=== PATIENT | female | born 1990 | race Caucasian/White ===

== ENCOUNTER 2016-07-16 17:40 | Emergency (ER) | payer OTHER ==
[2016-07-16 18:09] VITALS: RESP 16
--- NOTE | 2016-07-16 18:33 | ED ---
General Adult HPI - General Chief complaint: Needlestick/Exposure Stated complaint: Bur struck arm from dentist office-S Time Seen by Provider: 07/16/16 18:14 Source: patient, RN notes reviewed Mode of arrival: ambulatory Limitations: no limitations - History of Present Illness Initial comments: This is a 26-year-old female presents with an abrasion from a used dental tool. 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 This happened today. Patient states the patient's blood that she was exposed had a past medical history negative for any infectious disease. Patient states she has received her entire hepatitis B course and had titers showing response to the vaccine. Patient states she washed and cleaned the abrasion with peroxide and warm soapy water right after it happened. Patient denies any history of infectious disease.Patient denies any recent fever, chills, shortness breath, chest pain, abdominal pain, nausea/vomiting/diarrhea, back pain, numbness, tingling, hematuria, headache, or visual changes, or any other complaints. - Related Data Allergies Allergy/AdvReac Type Severity Reaction Status Date / Time No Known Allergies Allergy Verified 07/16/16 19:51 Review of Systems ROS Statement: Those systems with pertinent positive or pertinent negative responses have been documented in the HPI. ROS Other: All systems not noted in ROS Statement are negative. Past Medical History Past Medical History: No Reported History History of Any Multi-Drug Resistant Organisms: None Reported, MRSA Date of last positivie culture/infection: 2006 MDRO Source:: arm Past Surgical History: No Surgical Hx Reported Smoking Status: Never smoker Past Alcohol Use History: None Reported Past Drug Use History: None Reported General Exam - General Exam Comments Initial Comments: General: The patient is awake and alert, in no distress, and does not appear acutely ill. Eye: Pupils are equal, round and reactive to light, extra-ocular movements are intact. No nystagmus. There is normal conjunctiva bilaterally. No signs of icterus. Mouth and throat: There are moist mucous membranes and no oral lesions. Neck: The neck is supple, there is no tenderness or JVD. Cardiovascular: There is a regular rate and rhythm. No murmur, rub or gallop is appreciated. Respiratory: Lungs are clear to auscultation, respirations are non-labored, breath sounds are equal. No wheezes, stridor, rales, or rhonchi. Musculoskeletal: Normal ROM, no tenderness. Strength 5/5. Sensation intact. Radial Pulses equal bilaterally 2+. Neurological: A&O x 3. CN II-XII intact, There are no obvious motor or sensory deficits. Coordination appears grossly intact. Speech is normal. Skin: There is an approximately 1 cm thin abrasion to the left forearm. No drainage, erythema or swelling. Skin is warm and dry and no rashes or lesions are noted. Psychiatric: Cooperative, appropriate mood & affect, normal judgment. Limitations: no limitations Course Vital Signs 07/16/16 18:06 Temperature 98.1 F Pulse Rate 82 Respiratory 16 Rate Blood Pressure 119/68 O2 Sat by Pulse 97 Oximetry Medical Decision Making - Medical Decision Making This is a 21-year-old female with bodily fluid exposure at the dentist office that she works at. Physical exam there is an approximately 1 cm thin abrasion to the right forearm. Patient has had her entire course of hepatitis B vaccine and showed immunity through positive titers. Patient has no history of infectious disease. Patient states the patient whose blood she was exposed to also stated that he was negative for any infectious disease. Labs were drawn. Discussed that the results will come back within a couple of days. I reviewed possibility for post exposure prophylaxis. Discussed that patient should follow up with PCP in one to 2 days or return to the [facility] for any worsening symptoms or for any further concerns. Patient was receptive to this plan and patient will be discharged home. Disposition Clinical Impression: Exposure to blood or body fluid Disposition: HOME SELF-CARE Condition: Good Instructions: Postexposure Prophylaxis (ED) Additional Instructions: Please follow-up with family doctor in the next 2 days of symptoms have not improved. Please return to emergency room if the symptoms increase or worsen or for any other concerns. Referrals: Maxi Jurado Jr, [Primary Care Provider] - 1-2 days Time of Disposition: 20:39
[2016-07-16 20:39] LABS: Hepatitis B Surface Ag Index 0.05
[2016-07-16 20:45] LABS: Hepatitis B Core IgM Index 0.02
[2016-07-16 20:54] VITALS: BP 123/72; PULSE 78; TEMP 97.1
[2016-07-16 20:56] LABS: Hepatitis C Virus IgG Index 0.11
[2016-07-16 20:57] LABS: Hepatitis C Virus IgG Ab Negative (Negative)
[2016-07-18 13:04] LABS: HIV-1/HIV-2 Ab Screen NONREAC (NON REAC)
== END 2016-07-16 20:51 | disposition home or self-care (01) ==
LOC: EC 17:40
DX: Z04.2 Encounter for examination and observation following work accident (principal); Z77.21 Contact with and (suspected) exposure to potentially hazardous body fluids; Y92.59 Other trade areas as the place of occurrence of the external cause; S50.811A Abrasion of right forearm, initial encounter
CPT/HCPCS: 36415; 80074; 87389; 99283

== ENCOUNTER → 2019-02-15 | Outpatient (CLI) | payer BC ==
[2019-02-15 17:42] LABS: HCT 39.2 % (34.0-46.0); HGB 13.6 gm/dL (11.4-16.0); MCHC 34.6 g/dL (31.0-37.0); MCV 92.4 fL (80.0-100.0); Mean Platelet Volume 6.5; Platelet Count 275 k/uL (150-450); RBC 4.25 m/uL (3.80-5.40); RDW 12.5 % (11.5-15.5)
[2019-02-15 23:41] LABS: Thyroid Peroxidase Antibodies 37.4 U/mL (0.0-60.0)
[2019-02-15 23:47] LABS: African American GFR (CKD) 116.3 (60.0-200.0); Albumin 4.4 g/dL (3.80-4.90); Albumin/Globulin Ratio 1.91 (1.60-3.17); Anion Gap 8.8 mmol/L (4.00-12.00); BUN/Creat Ratio 18.75 Ratio (12.00-20.00); Calcium 9.1 mg/dL (8.7-10.3); Carbon Dioxide 25.2 mmol/L (21.6-31.8); Globulin 2.3 g/dL (1.6-3.3); Potassium 4.2 mmol/L (3.5-5.5); Total Bilirubin 0.3 mg/dL (0.2-1.2); Total Protein 6.7 g/dL (6.2-8.2)
[2019-02-16 01:13] LABS: ACTH 7.53 pg/mL (0.00-45.99)
== END | disposition home or self-care (01) ==
LOC: LABWHC1 17:06
PROVIDERS: ATTEND Internal Medicine Endocrinology, Diabetes & Metabolism
DX: R53.83 Other fatigue (principal)
CPT/HCPCS: 36415; 80053; 82024; 82533; 82607; 84146; 84439; 84443; 84481; 85027; 86376

== ENCOUNTER 2024-06-27 18:38 | Observation (INO) | payer BC, OTHER ==
--- NOTE | 2024-06-27 19:01 | ED ---
General Adult HPI - General Chief complaint: Syncope Stated complaint: 7 wks preg, abd pain, syncope Time Seen by Provider: 06/27/24 19:00 Source: patient, family, RN notes reviewed Mode of arrival: ambulatory Limitations: no limitations - History of Present Illness Initial comments: This is a 34-year-old female no significant medical history, [id number] presenting to the emergency department with a complaint of a syncopal event and abdominal pain. Patient states that she is approximately 7 weeks and prior to arrival she began to experience severe lower abdominal pain described as a squeezing sensation while she was standing at the kitchen table after dinner. Patient states that pain began to intensify and she experienced symptoms of dizziness, lightheadedness and believe that she was going to pass out when she slowly sat onto the floor. Currently, patient states that she is having 10 out of 10 lower abdominal pain. She denies vaginal bleeding, vaginal discharge, dysuria, hematuria, flank pain, nausea, vomiting, fevers, chills. Denies previous surgical abdominal history. Patient states that she has an appointment scheduled for her first OB visit this week with Dr. Russell. - Related Data Home Medications Medication Instructions Recorded Confirmed Sertraline [Zoloft] 1 tab PO DAILY 06/28/24 06/28/24 Allergies Allergy/AdvReac Type Severity Reaction Status Date / Time No Known Allergies Allergy Verified 06/27/24 18:56 Review of Systems ROS Statement: Those systems with pertinent positive or pertinent negative responses have been documented in the HPI. ROS Other: All systems not noted in ROS Statement are negative. Past Medical History Past Medical History: No Reported History History of Any Multi-Drug Resistant Organisms: MRSA Date of last positivie culture/infection: 2006 MDRO Source:: arm Past Surgical History: No Surgical Hx Reported Past Psychological History: No Psychological Hx Reported Smoking Status: Never smoker Past Alcohol Use History: None Reported Past Drug Use History: None Reported General Exam Limitations: no limitations General appearance: alert, other (acute distress due to pain, pallor) ENT exam: Present: normal exam, mucous membranes moist Respiratory exam: Present: normal lung sounds bilaterally. Absent: respiratory distress, wheezes, rales, rhonchi, stridor Cardiovascular Exam: Present: regular rate, normal rhythm, tachycardia, normal heart sounds. Absent: systolic murmur, diastolic murmur, rubs, gallop, clicks GI/Abdominal exam: Present: tenderness, guarding, rigid, normal bowel sounds, other (peritonal signs on exam). Absent: soft, distended, rebound, mass, bruit Extremities exam: Present: normal inspection, full ROM, normal capillary refill. Absent: tenderness, pedal edema, joint swelling, calf tenderness Back exam: Present: normal inspection Course Vital Signs 06/27/24 06/27/24 06/27/24 18:57 20:09 20:13 Temperature 97.7 F Pulse Rate 85 81 110 H Respiratory 16 20 20 Rate Blood Pressure 71/49 96/62 74/41 O2 Sat by Pulse 100 98 97 Oximetry 06/27/24 06/27/24 06/27/24 20:17 20:28 20:36 Temperature Pulse Rate 115 H 87 80 Respiratory 14 18 16 Rate Blood Pressure 54/41 115/77 110/74 O2 Sat by Pulse Oximetry 06/27/24 06/27/24 06/27/24 20:45 20:51 21:00 Temperature Pulse Rate 88 85 86 Respiratory 16 18 13 Rate Blood Pressure 97/58 115/72 122/89 O2 Sat by Pulse 100 100 Oximetry 06/27/24 06/27/24 06/27/24 21:10 21:15 21:20 Temperature Pulse Rate 96 86 82 Respiratory 15 12 21 Rate Blood Pressure 92/77 109/64 65/40 O2 Sat by Pulse 99 100 100 Oximetry 06/27/24 06/27/24 06/27/24 21:24 21:26 21:30 Temperature Pulse Rate 86 92 103 H Respiratory 12 20 20 Rate Blood Pressure 72/37 101/49 121/63 O2 Sat by Pulse 98 100 99 Oximetry 06/27/24 06/27/24 06/27/24 21:32 21:42 21:44 Temperature 98.4 F 98.4 F Pulse Rate 103 H 87 87 Respiratory 15 16 16 Rate Blood Pressure 113/66 108/67 108/67 O2 Sat by Pulse 99 100 100 Oximetry Medical Decision Making - Medical Decision Making Was pt. sent in by a medical professional or institution (, PA, DIGITAL ASSOCIATE MEDIA DIRECTOR, urgent care, hospital, or snf...) When possible be specific @ -No Did you speak to anyone other than the patient for history (EMS, parent, family, police, friend...)? What history was obtained from this source @ -Spoke to patient's and mother at bedside states the patient is scheduled for her first OB visit this week with Dr. Russell Did you review nursing and triage notes (agree or disagree)? Why? @ -I reviewed and agree with nursing and triage notes Were old charts reviewed (outside hosp., previous admission, EMS record, old EKG, old radiological studies, urgent care reports/EKG's, snf records)? Report findings @ -No old charts were reviewed Differential Diagnosis (chest pain, altered mental status, abdominal pain women, abdominal pain men, vaginal bleeding, weakness, fever, dyspnea, syncope, headache, dizziness, GI bleed, back pain, seizure, CVA, palpatations, mental health, musculoskeletal)? @ -Differential Syncope: Valvular disease, hypertrophic cardiomyopathy, pulmonary embolism, tamponade, tachycardia, bradycardia, ME, hypovolemia, hemorrhage, dissection, anemia, intracranial hemorrhage, seizure, hypoglycemia, carbon monoxide poisoning, this is not meant to be an all-inclusive list. EKG interpreted by me (3pts min.). @ -Completed at 1903 sinus rhythm with a ventricular to 77, MO interval 187, QRS 83, QTc 416. X-rays interpreted by me (1pt min.). @ -None done CT interpreted by me (1pt min.). @ -None done U/S interpreted by me (1pt. min.). @ -Transvaginal and transabdominal ultrasound completed with a impression of no evidence of intrauterine gestational sac with noted presence of free fluid and heterogeneous material reflecting blood products seen within the pelvic cavity and possible blood products seen within the pelvic cavity. What testing was considered but not performed or refused? (CT, X-rays, U/S, labs)? Why? @ -None What meds were considered but not given or refused? Why? @ -None Did you discuss the management of the patient with other professionals (professionals i.e. , PA, DIGITAL ASSOCIATE MEDIA DIRECTOR, lab, RT, psych nurse, social media executive, lumber kiln operator, teacher, sustainability officer, correctional case records supervisor)? Give summary @ -i spoke with my attending, Dr. Conway, who assisted in the care of this patient and contacted on-call OB specialist for further continuation of care. Was smoking cessation discussed for >3mins.? @ -No Was critical care preformed (if so, how long)? @ -No Were there social determinants of health that impacted care today? How? (Homelessness, low income, unemployed, alcoholism, drug addiction, transportation, low edu. Level, literacy, decrease access to med. care, fpc, rehab)? @ -No Was there de-escalation of care discussed even if they declined (Discuss DNR or withdrawal of care, Hospice)? DNR status @ -No What co-morbidities impacted this encounter? (DM, HTN, Smoking, COPD, CAD, Cancer, CVA, ARF, Chemo, Hep., AIDS, mental health diagnosis, sleep apnea, morbid obesity)? @ -None Was patient admitted / discharged? Hospital course, mention meds given and route, prescriptions, significant lab abnormalities, going to OR and other pertinent info. @ -Admitted. 34-year-old female presenting with abdominal pain and syncope. Patient is noted to be hypotensive on arrival. On my evaluation she is in acute distress clutching her lower abdomen. Abdominal examination remarkable for rebound tenderness and positive peritoneal signs. Reevaluation of patient's blood pressure is improved 120s over 80s. She is promptly provided with 1500L fluid bolus in addition to pain medications and will undergo syncopal workup in addition to transvaginal OB ultrasound due to history of 7 weeks of gestation. While patient was undergoing ultrasound as reported by nursing staff that patient had a syncopal episode. At this time additional liter fluid bolus is ordered and further pain medication and antiemetics are ordered as well. My attending, Dr. Conway, personally evaluated the patient as well and was in the room with sanitation technician while ultrasound was being completed. There is concern for Blood products seen within the pelvic cavity most likely originating from ruptured ectopic of the right fallopian tube. At this time my attending contacted on-call OB specialist, Dr. Cali, was agreed to come to personally evaluate the patient with impending OR evaluation for emergent laparotomy. Patient is fluctuating with periods of hypotension while heart rate remains stable. Labs are remarkable for leukocytosis 17, elevated neutrophils of 10 and lymphocytes of 5.8. Patient's APTT 16.[place] [address].8. Patient will be admitted for emergent laparotomy under the care of Dr. Cali. Undiagnosed new problem with uncertain prognosis? @ -No Drug Therapy requiring intensive monitoring for toxicity (Heparin, Nitro, Insulin, Cardizem)? @ -No Were any procedures done? @ -No Diagnosis/symptom? @ -peritoneal abdominal pain, ruptured ectopic , syncope Acute, or Chronic, or Acute on Chronic? @ -Acute Uncomplicated (without systemic symptoms) or Complicated (systemic symptoms)? @ -Complicated Side effects of treatment? @ -No Exacerbation, Progression, or Severe Exacerbation? @ -No Poses a threat to life or bodily function? How? (Chest pain, USA, ME, pneumonia, PE, COPD, DKA, ARF, appy, cholecystitis, CVA, Diverticulitis, Homicidal, Suicidal, threat to staff... and all critical care pts) @ -yes - Lab Data Result diagrams: 06/28/24 11:59 06/28/24 06:10 Lab Results 06/27/24 06/27/24 06/27/24 Range/Units 19:14 19:14 19:16 WBC 17.0 H (3.8-10.6) k/uL RBC 4.06 (3.80-5.40) m/uL Hgb 12.7 (11.4-16.0) gm/dL Hct 36.9 (34.0-46.0) % MCV 90.8 (80.0-100.0) fL MCH 31.3 (25.0-35.0) pg MCHC 34.5 (31.0-37.0) g/dL RDW 12.4 (11.5-15.5) % Plt Count 327 (150-450) k/uL MPV 7.3 Neutrophils % 59 % Lymphocytes % 34 % Monocytes % 4 % Eosinophils % 1 % Basophils % 1 % Neutrophils # 10.0 H (1.3-7.7) k/uL Lymphocytes # 5.8 H (1.0-4.8) k/uL Monocytes # 0.7 (0-1.0) k/uL Eosinophils # 0.1 (0-0.7) k/uL Basophils # 0.1 (0-0.2) k/uL PT (10.0-12.5) sec INR (<1.2) APTT (22.0-30.0) sec Sodium 134 L (137-145) mmol/L Potassium 3.5 (3.5-5.1) mmol/L Chloride 101 (98-107) mmol/L Carbon Dioxide 17 L (22-30) mmol/L Anion Gap 16 mmol/L BUN 16 (7-17) mg/dL Creatinine 0.82 (0.52-1.04) mg/dL Est GFR (CKD-EPI)AfAm >90 (>60 ml/min/1.73 sqM) Est GFR (CKD-EPI)NonAf >90 (>60 ml/min/1.73 sqM) Glucose 176 H (74-99) mg/dL POC Glucose (mg/dL) (70-110) mg/dL POC Glu Shop Hand ID Calcium 9.7 (8.4-10.2) mg/dL Magnesium 1.9 (1.6-2.3) mg/dL Total Bilirubin 0.2 (0.2-1.3) mg/dL AST 18 (14-36) U/L ALT 13 (4-34) U/L Alkaline Phosphatase 56 (38-126) U/L Total Protein 6.7 (6.3-8.2) g/dL Albumin 4.1 (3.5-5.0) g/dL HCG, Quant 68602.8 mIU/mL Blood Type A Positive Blood Type Confirm Blood Type Recheck No Previous Record Bld Type Recheck Status CABO Indicated Antibody Screen NEGATIVE Crossmatch See Detail Spec Expiration Date 06/30/2024 - 231506/27/24 06/27/24 06/27/24 Range/Units 19:17 20:16 20:29 WBC (3.8-10.6) k/uL RBC (3.80-5.40) m/uL Hgb (11.4-16.0) gm/dL Hct (34.0-46.0) % MCV (80.0-100.0) fL MCH (25.0-35.0) pg MCHC (31.0-37.0) g/dL RDW (11.5-15.5) % Plt Count (150-450) k/uL MPV Neutrophils % % Lymphocytes % % Monocytes % % Eosinophils % % Basophils % % Neutrophils # (1.3-7.7) k/uL Lymphocytes # (1.0-4.8) k/uL Monocytes # (0-1.0) k/uL Eosinophils # (0-0.7) k/uL Basophils # (0-0.2) k/uL PT 10.2 (10.0-12.5) sec INR 0.9 (<1.2) APTT 16.6 L (22.0-30.0) sec Sodium (137-145) mmol/L Potassium (3.5-5.1) mmol/L Chloride (98-107) mmol/L Carbon Dioxide (22-30) mmol/L Anion Gap mmol/L BUN (7-17) mg/dL Creatinine (0.52-1.04) mg/dL Est GFR (CKD-EPI)AfAm (>60 ml/min/1.73 sqM) Est GFR (CKD-EPI)NonAf (>60 ml/min/1.73 sqM) Glucose (74-99) mg/dL POC Glucose (mg/dL) 182 H (70-110) mg/dL POC Glu Shop Hand ID NAINA SCIANDRA Calcium (8.4-10.2) mg/dL Magnesium (1.6-2.3) mg/dL Total Bilirubin (0.2-1.3) mg/dL AST (14-36) U/L ALT (4-34) U/L Alkaline Phosphatase (38-126) U/L Total Protein (6.3-8.2) g/dL Albumin (3.5-5.0) g/dL HCG, Quant mIU/mL Blood Type Blood Type Confirm A Positive Blood Type Recheck Bld Type Recheck Status Antibody Screen Crossmatch Spec Expiration Date Disposition Clinical Impression: Syncope, Ruptured ectopic Disposition: ADMITTED IP TO THIS [facility] Condition: Serious Decision to Admit Reason: Admit from [facility] Decision Date: 06/27/24 Decision Time: 21:00
[2024-06-27] MEDS: SODIUM CHLORIDE 0.9% 1,500 ML IV STA (19:19)
[2024-06-27] MEDS: MORPHINE SULFATE 4 MG/ML SYRINGE IVP STA ×2 (19:20→20:22)
[2024-06-27 19:57] LABS: Basophils # (A) 0.1 k/uL (0-0.2); Basophils % (A) 1 %; Eosinophils # (A) 0.1 k/uL (0-0.7); Eosinophils % (A) 1 %; HCT 36.9 % (34.0-46.0); HGB 12.7 gm/dL (11.4-16.0); Lymphocytes # (A) 5.8 k/uL (1.0-4.8); Lymphocytes % (A) 34 %; MCH 31.3 pg (25.0-35.0); MCHC 34.5 g/dL (31.0-37.0); MCV 90.8 fL (80.0-100.0); Mean Platelet Volume 7.3; Monocytes # (A) 0.7 k/uL (0-1.0); Monocytes % (A) 4 %; Neutrophils % (A) 59 %; Platelet Count 327 k/uL (150-450); RBC 4.06 m/uL (3.80-5.40); RDW 12.4 % (11.5-15.5)
[2024-06-27 20:11] LABS: ALT 13 U/L (4-34); AST 18 U/L (14-36); African American GFR (CKD) >90 (>60 ml/min/1.73 sqM); Albumin 4.1 g/dL (3.5-5.0); Alkaline Phosphatase 56 U/L (38-126); Anion Gap 16 mmol/L; Blood Urea Nitrogen 16 mg/dL (7-17); Calcium 9.7 mg/dL (8.4-10.2); Carbon Dioxide 17 mmol/L (22-30); Chloride 101 mmol/L (98-107); Glucose 176 mg/dL (74-99); Magnesium 1.9 mg/dL (1.6-2.3); Non-African American GFR(CKD) >90 (>60 ml/min/1.73 sqM); Potassium 3.5 mmol/L (3.5-5.1); Sodium 134 mmol/L (137-145); Total Bilirubin 0.2 mg/dL (0.2-1.3); Total Protein 6.7 g/dL (6.3-8.2)
[2024-06-27 20:18] LABS: Glucose,Whole Blood 182 mg/dL (70-110)
[2024-06-27 20:20] LABS: INR 0.9 (<1.2); Prothrombin Time 10.2 sec (10.0-12.5)
[2024-06-27] MEDS: ONDANSETRON 4 MG/2 ML VIAL IVP STA (20:21)
[2024-06-27] MEDS: SODIUM CHLORIDE 0.9% 1,000 ML IV STA (20:21)
[2024-06-27 20:41] LABS: Partial Thromboplastin Time 16.6 sec (22.0-30.0)
--- NOTE | 2024-06-27 20:43 | US ---
EXAMINATION TYPE: Transabdominal DATE OF EXAM: 06/27/2024 8:27 PM COMPARISON: NONE CLINICAL INDICATION: Female, 34 years old with history of pelvic pain, 7 weeks gestation; LOW BLOOD P RESSURE. NO prior ultrasound. PATIENT PASSED OUT DURING TRVAG IMAGING. TECHNIQUE: Transvaginal (TV) and Transabdominal (TA) with grayscale and color Doppler imaging includi ng first trimester . FINDINGS: EXAM MEASUREMENTS: GESTATIONAL AGE / DATING Physician Established: Not yet established Dates by LMP: (7 weeks/5 days) EDC: 02/08/2025 Dates by First Scan: No previous this is first scan Dates by Current Scan for: Unable to date by today's study MATERNAL ANATOMY Uterus: 8.6 x 4.6 x 3.9 cm Right Ovary: seen, not measured due to patient status Left Ovary: Anechoic cyst in the left ovary measuring 5.0 x 4.9 x 3.7 cm. Post CDS / Adnexa: possible blood products seen within pelvic cavity Presence of free fluid: Heterogeneous material possibly reflecting blood products seen within pelvic cavity. GESTATION / SURVEY IUP: No GS, YS or CRL visualized within endometrium Date of LMP: 05/04/2024, [id number] Beta HcG (if available): Not available at this time Thickened heterogenous endometrium - 1.8 cm. No GS, YS or CRL visualized within endometrium. Possibl e blood products seen within pelvic cavity. IMPRESSION: 1. No evidence of intrauterine gestational sac, correlate with B-hCG. If positive, this could represe nt early , ectopic or spontaneous . Follow up pelvic ultrasound in 5-7 day s and serial beta hCG studies are recommended. [facility], , 06/27/2024 8:40 PM
[2024-06-27] MEDS: SODIUM CHLORIDE 0.9% 1,000 ML IV ONE ×3 (20:47→21:49)
[2024-06-27 20:53] LABS: HCG,Quantitative Serum 17980.8 mIU/mL
[2024-06-27] MEDS ORDERED: NALOXONE 0.4 MG/ML 1 ML VIAL IV PRN (20:55)
[2024-06-27] MEDS ORDERED: HYDROmorphone 1 MG/ML 1 ML SYRINGE IVP PRN (20:55)
[2024-06-27] MEDS ORDERED: MORPHINE SULFATE 4 MG/ML SYRINGE IV PRN (20:55)
[2024-06-27] MEDS ORDERED: HYDROcodone/APAP 5-325MG 1 EACH TAB PO PRN (20:55)
[2024-06-27] MEDS ORDERED: ONDANSETRON 4 MG/2 ML VIAL IVP PRN ×2 (20:55→23:34)
--- NOTE | 2024-06-27 21:14 | P.HPOB ---
History of Present Illness H&P Date: 06/27/24 Chief Complaint: Ectopic , hemoperitoneum This is a 34-year-old -0-1-0 at approximately 7 weeks gestation that presents with complaints of abdominal pain, increasing in nature, feeling like she was going to pass out after dinner. Patient states she had a positive test on 1219. Patient underwent ultrasound evaluation while in the emergency department blood was noted in the posterior cul-de-sac. Right ovary not visualized. Left ovary with enlarged cystic structure. Blood pressure on arrival 90s over 50s. Patient is coherent able to answer q uestions Patient did have loss of consciousness during ultrasound. [employer] MANAGER history #1 spontaneous AB #2 current States she was trying for menstrual cycles are regular in nature. Review of Systems Constitutional: Denies chills, Denies fever Ears, nose, mouth and throat: Denies headache Cardiovascular: Denies leg edema Respiratory: Denies dyspnea Genitourinary: Reports Past Medical History Past Medical History: No Reported History History of Any Multi-Drug Resistant Organisms: MRSA Date of last positivie culture/infection: 2006 MDRO Source:: arm Past Surgical History: No Surgical Hx Reported Past Psychological History: No Psychological Hx Reported Smoking Status: Never smoker Past Alcohol Use History: None Reported Past Drug Use History: None Reported Medications and Allergies Allergies Allergy/AdvReac Type Severity Reaction Status Date / Time No Known Allergies Allergy Verified 06/27/24 18:56 Exam Osteopathic Statement: *. No significant issues noted on an osteopathic structural exam other than those noted in the History and Physical/Consult. Vital Signs Temp Pulse Resp BP Pulse Ox 06/27/24 20:51 85 18 115/72 100 06/27/24 20:45 88 11 L 97/58 06/27/24 20:36 80 9 L 110/74 06/27/24 20:28 87 18 115/77 06/27/24 20:17 115 H 14 54/41 06/27/24 20:13 110 H 20 74/41 97 06/27/24 20:09 81 20 96/62 98 06/27/24 18:57 97.7 F 85 16 71/49 100 Intake and Output 06/27/24 06/27/24 06/27/24 06:59 14:59 22:59 Other: Weight 77.111 kg 30 exam is performed this date General Is well-nourished well-developed female, oriented to time and place. Patient is in reverse Trendelenburg secondary to low blood pressure. Abdominal exam performed by ED physician Dr. Ramirez, peritoneal signs are appreciated. Results Result Diagrams: 06/27/24 19:14 06/27/24 19:14 Abnormal Lab Results - Last 24 Hours (Table) 06/27/24 06/27/24 06/27/24 Range/Units 19:14 19:14 19:17 WBC 17.0 H (3.8-10.6) k/uL Neutrophils # 10.0 H (1.3-7.7) k/uL Lymphocytes # 5.8 H (1.0-4.8) k/uL APTT 16.6 L (22.0-30.0) sec Sodium 134 L (137-145) mmol/L Carbon Dioxide 17 L (22-30) mmol/L Glucose 176 H (74-99) mg/dL POC Glucose (mg/dL) (70-110) mg/dL 06/27/24 Range/Units 20:16 WBC (3.8-10.6) k/uL Neutrophils # (1.3-7.7) k/uL Lymphocytes # (1.0-4.8) k/uL APTT (22.0-30.0) sec Sodium (137-145) mmol/L Carbon Dioxide (22-30) mmol/L Glucose (74-99) mg/dL POC Glucose (mg/dL) 182 H (70-110) mg/dL Assessment and Plan (1) Ectopic Current Visit: Yes Status: Acute Code(s): O00.90 - UNSPECIFIED ECTOPIC WITHOUT INTRAUTERINE SNOMED Code(s): 60921143 (2) Hemoperitoneum Current Visit: Yes Status: Acute Code(s): K66.1 - HEMOPERITONEUM SNOMED Code(s): 255354506 Plan: 34-year-old at approximate 7 weeks gestation with presumed ectopic , hemoperitoneum. Patient is counseled on need for operative laparoscopy with evacuation of hemoperitoneum and possible salpingectomy. Patient is counseled on possibility of needing to proceed with exploratory laparotomy depending on findings of laparoscopy. Surgery is reviewed and risks are discussed including but not limited to infection, bleeding, damage to bladder, bowel, ureteric injury. Patient's family is in room and questions are answered. Anesthesia is notified and the OR team is notified.
[2024-06-27] MEDS: fentaNYL (PF) 50 MCG/ML 2 ML AMP IVP PRN (21:39)
[2024-06-27] MEDS ORDERED: CALCIUM CHLORIDE 100 MG/ML 10 ML SYRINGE ONE (21:47)
[2024-06-27] MEDS ORDERED: PHENYLEPHRINE 10 MG/ML VIAL ONE (21:47)
[2024-06-27] MEDS ORDERED: NEOSTIGMINE 1 MG/ML 10 ML VIAL ONE (21:47)
[2024-06-27] MEDS ORDERED: ROCURONIUM 10 MG/ML (5 ML VIAL) IV ONE (21:47)
[2024-06-27] MEDS ORDERED: GLYCOPYRROLATE 0.2 MG/ML 2 ML VIAL ONE (21:47)
[2024-06-27] MEDS ORDERED: fentaNYL (PF) 50 MCG/ML 2 ML AMP ONE (21:47)
[2024-06-27] MEDS ORDERED: ALBUMIN HUMAN 5% (12.5gm) 250 ML BOTTLE IVPB ONE (21:47)
[2024-06-27] MEDS ORDERED: ETOMIDATE 2 MG/ML 10 ML VIAL ONE (21:47)
[2024-06-27] MEDS ORDERED: LIDOCAINE 1% INJ 10MG/ML (20 ML MDV) ONE (21:47)
[2024-06-27] MEDS ORDERED: DEXAMETHASONE SOD PHOSPHATE 4 MG/ML 1 ML VIAL ONE (21:47)
[2024-06-27] MEDS ORDERED: SUCCINYLCHOLINE CHLORIDE 200 MG/10 ML VIAL IV ONE (21:47)
[2024-06-27] MEDS: ceFAZolin 1,000 MG VIAL IVPB ONE (21:49)
[2024-06-27] MEDS: BUPIVACAINE (PF) 0.25% 30 ML VIAL SQ ONE (22:02)
[2024-06-27] MEDS: LACTATED RINGERS 1,000 ML IV ONE (23:04)
[2024-06-27] MEDS: FAMOTIDINE 20 MG/2 ML VIAL IV PRN (23:21)
[2024-06-27] MEDS: HYDROmorphone 0.5 MG/0.5 ML SYRINGE IVP PRN (23:21)
--- NOTE | 2024-06-27 23:34 | P.OP ---
Date of Procedure: 06/27/24 Preoperative Diagnosis: Ectopic Postoperative Diagnosis: Same plus hemoperitoneum Procedure(s) Performed: Operative laparoscopy, right salpingectomy, evacuation of hemoperitoneum Anesthesia: CLEOA Surgeon: Lisa Cali Estimated Blood Loss (ml): 2,230 (Evacuation of hemoperitoneum) IV fluids (ml): 300 (500 cc of albumin) Urine output (ml): 100 Pathology: other (Right fallopian tube) Condition: stable Disposition: PACU Indications for Procedure: Ectopic , hemoperitoneum appreciated on ultrasound Operative Findings: Hemoperitoneum, right fallopian tube distended with ectopic normal left fallopian tube left ovary enlarged Description of Procedure: Patient was taken back to the operating suite where general anesthesia was obtained without difficulty by the anesthesia department. She was prepped and draped in the normal sterile fashion in the dorsal lithotomy position. A red rubber catheter was placed to drain the bladder during the procedure. A speculum was placed the anterior lip of the cervix was visualized and grasped with a single-tooth tenaculum. An acorn uterine manipulator was advanced into the cervix as a means to manipulate the uterus throughout the procedure. Attention was then turned to the patient's abdomen where in the umbilical fold a small skin incision is made. Through this incision the Veress needle is placed. Once the Veress needle was deemed to be in the appropriate position with a drop of CO2 pressure CO2 insufflation was allowed to occur. A 5 mm trocar and sleeve with the laparoscope and placed was placed through the skin incision and toward the pneumoperitoneum. The above-noted findings were visualized. An additional port sites is placed 10 cm lateral and 3 cm inferior to the midline port on the right side. The suction tour conductor was placed in the abdomen and a copious amount of blood was removed from the abdomen. Once the uterus was visualized the right fallopian tube was noted to be distended and purple in color. The LigaSure was opened and the mesosalpinx was coagulated and transected to the cornual region. Additional port site was placed and the left lower abdomen under direct visualization. This is a 10 mm port. An Endo Catch bag was placed through the 10 mm port and the fallopian tube was placed into the Endo Catch bag. Continued suction irrigation until majority of the blood was removed from the patient's pelvis. Blood was noted to the liver and this was suction irrigated as well. No active close bleeding was appreciated in the pelvis therefore all instruments were removed from the patient's abdomen. Attention was then turned to the right upper catheter which had fallen out during the surgery, Sears catheter was placed and blood-tinged urine was appreciated. At this point decision was to proceed with diagnostic cystoscopy. Sears was removed and cystoscope was performed. Cystoscope was placed through the urethra and toward the bladder bladder bubble was appreciated intact bladder mucosa was noted, both ureteral orifices were noted to be spilling clear yellow urine. A catheter was replaced after cystoscope was removed. Attention was turned to the abdomen where the skin incisions were closed with 4- 0 Vicryl in a subcuticular fashion. Steri-Strips and sterile dressings were applied. All counts noted be correct x 2 at the end of the procedure. Tolerated procedure well and was taken the recovery room awake in stable condition.
[2024-06-27] MEDS: IPRATROPIUM-ALBUTEROL 3 ML NEB INHALATION STA (23:45)
[2024-06-28] MEDS: ACETAMINOPHEN IV (For NPO) 1,000 MG in EMPTY BAG 1 BAG IVPB ONE (00:57)
[2024-06-28] MEDS: IBUPROFEN 800 MG TAB PO SCH (01:43)
[2024-06-28] MEDS: ACETAMINOPHEN TAB 500 MG TAB PO SCH (01:43)
[2024-06-28] MEDS: LACTATED RINGERS 1,000 ML IV SCH (01:44)
[2024-06-28] MEDS: HYDROmorphone 0.5 MG/0.5 ML SYRINGE IVP PRN (02:05)
[2024-06-28] MEDS: IBUPROFEN IV 800 MG in SODIUM CHLORIDE 0.9% 250 ML IV ONE (05:07)
[2024-06-28 06:47] LABS: Basophils % (A) 0 %; Eosinophils % (A) 0 %; HCT 27.5 % (34.0-46.0); Lymphocytes % (A) 7 %; MCH 31.2 pg (25.0-35.0); MCV 89.2 fL (80.0-100.0); Mean Platelet Volume 7.7; Monocytes # (A) 0.3 k/uL (0-1.0); Monocytes % (A) 2 %; Neutrophils # (A) 13.2 k/uL (1.3-7.7); Neutrophils % (A) 91 %; Platelet Count 173 k/uL (150-450); RBC 3.08 m/uL (3.80-5.40); RDW 13.5 % (11.5-15.5); WBC 14.5 k/uL (3.8-10.6)
[2024-06-28 06:50] LABS: HGB 9.6 gm/dL (11.4-16.0)
[2024-06-28 06:59] LABS: Prothrombin Time 10.9 sec (10.0-12.5)
[2024-06-28 07:00] LABS: ALT 12 U/L (4-34); AST 20 U/L (14-36); African American GFR (CKD) >90 (>60 ml/min/1.73 sqM); Albumin 3.1 g/dL (3.5-5.0); Alkaline Phosphatase 29 U/L (38-126); Anion Gap 9 mmol/L; Blood Urea Nitrogen 10 mg/dL (7-17); Calcium 8.2 mg/dL (8.4-10.2); Carbon Dioxide 18 mmol/L (22-30); Chloride 106 mmol/L (98-107); Glucose 146 mg/dL (74-99); Non-African American GFR(CKD) >90 (>60 ml/min/1.73 sqM); Potassium 4.5 mmol/L (3.5-5.1); Sodium 133 mmol/L (137-145); Total Bilirubin 0.7 mg/dL (0.2-1.3); Total Protein 5.1 g/dL (6.3-8.2)
[2024-06-28] MEDS ORDERED: ONDANSETRON 4 MG/2 ML VIAL IVP PRN (07:00)
[2024-06-28] MEDS: SENNOSIDES-DOCUSATE SODIUM 1 EACH TAB PO SCH (07:45)
--- NOTE | 2024-06-28 08:52 | P.PN ---
Progress Note - Text Progress Note Date: 06/28/24 34-year-old G2, P0 status post operative laparoscopy for ectopic , hemoperitoneum. Patient is doing overall well this morning. Hemoglobin on admission 12 down to 9.6 this morning status post 3 units of packed red blood cells in the operating room. Patient is diuresing well and Sears is draining clear yellow urine. Pain is moderately well-controlled. She denies shortness of breath, nausea, vomiting. No vaginal bleeding. Vital signs stable this morning General No acute distress Abdomen incisions intact clean and dry Extremities PAS in place Assessment Postop day 0, operative laparoscopy, right salpingectomy, evacuation of hemoperitoneum Acute blood loss anemia secondary to ectopic Plan Increase ambulation, once able to ambulate to the bathroom will plan to continuation of Sears catheter. Transition to oral pain medication Advance diet as tolerated Repeat CBC around 1230.
[2024-06-28 12:10] LABS: HGB 8.7 gm/dL (11.4-16.0); MCHC 36.2 g/dL (31.0-37.0); MCV 88.5 fL (80.0-100.0); Mean Platelet Volume 8.1; Platelet Count 165 k/uL (150-450); RBC 2.72 m/uL (3.80-5.40); RDW 13.6 % (11.5-15.5); WBC 15.3 k/uL (3.8-10.6)
[2024-06-28] MEDS: SIMETHICONE 80 MG CHEWABLE PO PRN (15:49)
[2024-06-29 04:13] VITALS: TEMP 98.7
[2024-06-29] MEDS: diphenhydrAMINE 50 MG/ML 1 ML VIAL IVP STA (05:45)
[2024-06-29 07:29] LABS: HCT 23.8 % (34.0-46.0); HGB 8.1 gm/dL (11.4-16.0); MCH 30.9 pg (25.0-35.0); MCV 90.9 fL (80.0-100.0); Mean Platelet Volume 7.4; Platelet Count 138 k/uL (150-450); RBC 2.62 m/uL (3.80-5.40); RDW 13.4 % (11.5-15.5); WBC 9.5 k/uL (3.8-10.6)
[2024-06-29 08:35] VITALS: BP 112/54; PULSE 85; RESP 16
--- NOTE | 2024-06-29 08:46 | P.DS ---
Providers Date of admission: 06/27/24 20:56 Expected date of discharge: 06/29/24 Attending physician: Lisa Cali Primary care physician: Darryn Jeong - Discharge Diagnosis(es) (1) Ectopic Current Visit: Yes Status: Acute (2) Hemoperitoneum Current Visit: Yes Status: Acute Hospital Course: 34-year-old G2, P0 presented to the emergency department with complaints of passing out at home and increased abdominal pain. Ultrasound was performed revealing hemoperitoneum. Positive urine test on 06/10. For full details in this patient please see the dictated history and physical. Patient was taken back to the operating suite where hemoperitoneum was appreciated and approximately 2200 cc of blood was suctioned out of her abdomen. Right fallopian tube was noted to be swollen with ectopic . Right fallopian tube was removed without difficulty. For full details on the surgery please see the dictated operative report. Patient did receive 3 units of packed red blood cells in the operating room. Patient is noted acute blood loss anemia secondary to ectopic going from 12-8.1. Patient is feeling okay this morning. She is ambulating and voiding without difficulty. She is tolerating a regular diet without nausea or vomiting. Hemoglobin is stable at 8.1 this morning. She denies vaginal bleeding. She remains noting discomfort with inspiration most likely secondary to laparoscopy. Postoperative restrictions and guidelines are discussed with patient and her mom. Dltk-gry-ejosqlu ibuprofen and Tylenol discussed for pain. Patient Condition at Discharge: Good Plan - Discharge Summary New Discharge Prescriptions: No Action Sertraline [Zoloft] 1 tab PO DAILY Discharge Medication List Sertraline [Zoloft] 1 tab PO DAILY 06/28/24 [History] Follow up Appointment(s)/Referral(s): Lisa Cali DO [Doctor of Osteopathic Medicine] - 2 Weeks Patient Instructions/Handouts: *Surgery [facility] - Laparoscopy Discharge Instructions Activity/Diet/Wound Care/Special Instructions: Asun-hnd-nwmyhrj ibuprofen 600 mg or 3 tablets every 6 hours as needed for pain. In addition patient may do 1 g or 2 500 mg tablets, of Tylenol every 6 hours. Tub baths or intercourse until postoperative appointment. In addition patient is encouraged to start iron sulfate 325 1 tablet twice daily with orange juice. Patient is to be off week for 2 weeks until her postoperative appointment. Discharge Disposition: HOME SELF-CARE
== END 2024-06-29 10:49 | disposition home or self-care (01) ==
LOC: EC 18:38 → 4FBP 20:56
PROVIDERS: ADMIT Obstetrics & Gynecology Obstetrics; ATTEND Obstetrics & Gynecology Obstetrics
DX: O00.101 Right tubal pregnancy without intrauterine pregnancy (principal); D62 Acute posthemorrhagic anemia; K66.1 Hemoperitoneum; Z3A.01 Less than 8 weeks gestation of pregnancy
CPT/HCPCS: 59151; 96361; 96374; 96375; 99285; 36415; 93005; 36430; 86900; 86901; 88305; 80053 ×2; 83735; 85025 ×2; 85027 ×2; 85610 ×2; 85730; 86850; 86920; 84702; 76801; 76817; G0378 ×3; P9016; P9045; J0330; J2270; J1100; J2710; J2405; J0690; J2003; J3010; J3490; J0131; J1741; J1171 ×2; J2371; J0665; J1596